=== PATIENT | female | born 1970 | race Caucasian/White ===

== ENCOUNTER 2021-06-25 19:09 | Emergency (ER) | payer OTHER ==
[2021-06-25] MEDS ORDERED: Sodium Chloride 0.9% 10 ML Syringe FLUSH PRN (19:40)
--- NOTE | 2021-06-25 20:12 | EDM.PDOC ---
ED HPI GENERAL MEDICAL PROBLEM - General Chief Complaint: Chest Pain Stated Complaint: CHEST PAIN Time Seen by Provider: 06/25/21 19:30 Source of Information: Reports: Patient, Family, RN Notes Reviewed - History of Present Illness INITIAL COMMENTS - FREE TEXT/NARRATIVE: Patient is a 51-year-old female presenting to the emergency department with complaints of intermittent chest pressure and palpitations. Reports symptoms began approximately 3 hours prior to arrival in ER. States that the episodes of pressure last approximately 10 minutes and then resolve momentarily but have been recurring. States that she feels like her heart races and then slows down. She has had palpitations in the past but states that she does not normally have pressure associated with them. She admits that she does drink quite a bit of caffeine each day. Denies any significant shortness of breath, however states that at times she has had to take a deep breath because it felt like she was not getting enough air. Denies any dizziness or diaphoresis. Pain does not radiate into her neck or arms. Patient is on her way home to [place]. They have been hiking off and on for the last few days and she has been exerting herself significantly more than normal, however they have only been traveling today. She denies any history of blood clots or MO. She does have a history of hypertension for which she takes lisinopril. 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 Denies: Blood Pressure Problem, Lightheadedness, Syncope Endocrine: Reports: No Symptoms GI/Abdominal: Reports: No Symptoms : Reports: No Symptoms Musculoskeletal: Reports: No Symptoms Skin: Reports: No Symptoms Neurological: Reports: No Symptoms Psychiatric: Reports: No Symptoms Hematologic/Lymphatic: Reports: No Symptoms Immunologic: Reports: No Symptoms ED EXAM, GENERAL - Physical Exam Exam: See Below General Appearance: Alert, WD/WN, No Apparent Distress Respiratory/Chest: No Respiratory Distress, Lungs Clear, Normal Breath Sounds, No Accessory Muscle Use, Other (midsternal chest wall tenderness) Cardiovascular: Normal Peripheral Pulses, Regular Rate, Rhythm, No Edema, No Gallop, No JVD, No Murmur, No Rub GI/Abdominal: Normal Bowel Sounds, Soft, Non-Tender, No Organomegaly, No Distention, No Abnormal Bruit, No Mass Extremities: Normal Inspection, Normal Range of Motion, Non-Tender, Normal Capillary Refill, No Pedal Edema Neurological: Alert, Oriented, CN II-XII Intact, Normal Cognition, Normal Gait, Normal Reflexes, No Motor/Sensory Deficits Psychiatric: Normal Affect, Normal Mood Skin Exam: Warm, Dry, Intact, Normal Color, No Rash #1 Interpretation EKG Date: 06/25/21 Time: 19:18 Rhythm: NSR Rate (Beats/Min): 76 [place]: Normal P-Wave: Present QRS: Normal ST-T: Normal QT: Normal Course - Vital Signs Last Recorded V/S: Last Vital Signs Temp 98.4 F 06/25/21 19:33 Pulse 80 06/25/21 19:33 Resp 14 06/25/21 19:33 BP 144/71 H 06/25/21 19:33 Pulse Ox 98 06/25/21 19:33 - Orders/Labs/Meds Labs: Laboratory Tests 06/25/21 06/25/21 06/25/21 Range/Units 19:40 19:40 19:40 WBC 7.10 (3.98-10.04) K/mm3 RBC 4.70 (3.98-5.22) M/mm3 Hgb 14.5 (11.2-15.7) gm/dl Hct 42.5 (34.1-44.9) % MCV 90.4 (79.4-94.8) fl MCH 30.9 (25.6-32.2) pg MCHC 34.1 (32.2-35.5) g/dl RDW Std Deviation 43.0 (36.4-46.3) fL Plt Count 278 (182-369) K/mm3 MPV 10.2 (9.4-12.3) fl Neut % (Auto) 80.6 H (34.0-71.1) % Lymph % (Auto) 12.8 L (19.3-51.7) % [place] % (Auto) 5.8 (4.7-12.5) % Eos % (Auto) 0.3 L (0.7-5.8) Baso % (Auto) 0.4 (0.1-1.2) % Neut # (Auto) 5.72 (1.56-6.13) K/mm3 Lymph # (Auto) 0.91 L (1.18-3.74) K/mm3 [place] # (Auto) 0.41 H (0.24-0.36) K/mm3 Eos # (Auto) 0.02 L (0.04-0.36) K/mm3 Baso # (Auto) 0.03 (0.01-0.08) K/mm3 PT 10.8 (9.7-12.0) SECONDS INR 1.01 APTT 29.8 (21.7-31.4) SECONDS D-Dimer, Quantitative 0.34 (0.19-0.50) mg/L Sodium 142 (136-145) mEq/L Potassium 3.9 (3.5-5.1) mEq/L Chloride 106 (98-107) mEq/L Carbon Dioxide 26 (21-32) mEq/L Anion Gap 13.9 (5-15) BUN 18 (7-18) mg/dL Creatinine 1.0 (0.55-1.02) mg/dL Est Cr Clr Drug Dosing 57.47 mL/min Estimated GFR (MDRD) 58 (>60) mL/min BUN/Creatinine Ratio 18.0 (14-18) Glucose 109 H (70-99) mg/dL Calcium 9.3 (8.5-10.1) mg/dL Magnesium (1.8-2.4) mg/dL Total Bilirubin 0.2 (0.2-1.0) mg/dL AST 36 (15-37) U/L ALT 46 (14-59) U/L Alkaline Phosphatase 94 (46-116) U/L Troponin I < 0.017 (0.00-0.056) ng/mL NT-Pro-B Natriuret Pep (0-125) pg/mL Total Protein 7.5 (6.4-8.2) g/dl Albumin 4.0 (3.4-5.0) g/dl Globulin 3.5 gm/dL Albumin/Globulin Ratio 1.1 (1-2) Urine Color (Yellow) Urine Appearance (Clear) Urine pH (5.0-8.0) Ur Specific [place] (1.005-1.030) Urine Protein (Negative) Urine Glucose (UA) (Negative) Urine Ketones (Negative) Urine Occult Blood (Negative) Urine Nitrite (Negative) Urine Bilirubin (Negative) Urine Urobilinogen (0.2-1.0) Ur Leukocyte Esterase (Negative) Urine RBC (0-5) /hpf Urine WBC (0-5) /hpf Ur Squamous Epith Cells (0-5) /hpf Urine Bacteria (FEW) /hpf Urine Mucus (FEW) /hpf 06/25/21 06/25/21 06/25/21 Range/Units 19:40 19:40 20:52 WBC (3.98-10.04) K/mm3 RBC (3.98-5.22) M/mm3 Hgb (11.2-15.7) gm/dl Hct (34.1-44.9) % MCV (79.4-94.8) fl MCH (25.6-32.2) pg MCHC (32.2-35.5) g/dl RDW Std Deviation (36.4-46.3) fL Plt Count (182-369) K/mm3 MPV (9.4-12.3) fl Neut % (Auto) (34.0-71.1) % Lymph % (Auto) (19.3-51.7) % [place] % (Auto) (4.7-12.5) % Eos % (Auto) (0.7-5.8) Baso % (Auto) (0.1-1.2) % Neut # (Auto) (1.56-6.13) K/mm3 Lymph # (Auto) (1.18-3.74) K/mm3 [place] # (Auto) (0.24-0.36) K/mm3 Eos # (Auto) (0.04-0.36) K/mm3 Baso # (Auto) (0.01-0.08) K/mm3 PT (9.7-12.0) SECONDS INR APTT (21.7-31.4) SECONDS D-Dimer, Quantitative (0.19-0.50) mg/L Sodium (136-145) mEq/L Potassium (3.5-5.1) mEq/L Chloride (98-107) mEq/L Carbon Dioxide (21-32) mEq/L Anion Gap (5-15) BUN (7-18) mg/dL Creatinine (0.55-1.02) mg/dL Est Cr Clr Drug Dosing mL/min Estimated GFR (MDRD) (>60) mL/min BUN/Creatinine Ratio (14-18) Glucose (70-99) mg/dL Calcium (8.5-10.1) mg/dL Magnesium 2.0 (1.8-2.4) mg/dL Total Bilirubin (0.2-1.0) mg/dL AST (15-37) U/L ALT (14-59) U/L Alkaline Phosphatase (46-116) U/L Troponin I (0.00-0.056) ng/mL NT-Pro-B Natriuret Pep 19 (0-125) pg/mL Total Protein (6.4-8.2) g/dl Albumin (3.4-5.0) g/dl Globulin gm/dL Albumin/Globulin Ratio (1-2) Urine Color Light yellow (Yellow) Urine Appearance Slt cloudy H (Clear) Urine pH 6.5 (5.0-8.0) Ur Specific [place] 1.010 (1.005-1.030) Urine Protein Negative (Negative) Urine Glucose (UA) Negative (Negative) Urine Ketones Negative (Negative) Urine Occult Blood Trace-lysed H (Negative) Urine Nitrite Negative (Negative) Urine Bilirubin Negative (Negative) Urine Urobilinogen 0.2 (0.2-1.0) Ur Leukocyte Esterase 2+ H (Negative) Urine RBC 5-10 H (0-5) /hpf Urine WBC 20-30 H (0-5) /hpf Ur Squamous Epith Cells 5-10 H (0-5) /hpf Urine Bacteria Few (FEW) /hpf Urine Mucus Not seen (FEW) /hpf Meds: Medications Discontinued Medications Generic Name Dose Route Start Last Admin Trade Name Fiona PRN Reason Stop Dose Admin Lorazepam 1 mg 06/25/21 20:34 06/25/21 20:51 Lorazepam 1 Mg Tab PO 06/25/21 20:35 1 mg ONETIME ONE Administration Sodium Chloride 10 ml 06/25/21 19:40 06/25/21 20:21 Sodium Chloride 0.9% 10 Ml Syringe FLUSH 10 ml ASDIRECTED PRN Administration Keep Vein Open - Re-Assessments/Exams Free Text/Narrative Re-Assessment/Exam: Patient is a 51-year-old female presenting to the emergency department with complaints of intermittent episodes of chest pressure and palpitations. This has been occurring intermittently for the last 3 hours. She reports history of palpitations but denies having chest pressure associated this. She has been hiking for the last few days and exerting herself significantly more than usual. She feels that she has been taking in enough fluids however. She does report drinking a fair amount of caffeine daily including coffee in the morning as well as a caffeinated coffee drink shortly prior to symptoms starting. Denies significant shortness of breath but states that she sometimes has to take a deep breath because she feels like she did not get enough air. Exam is unremarkable with the exception of some midsternal chest wall tenderness. I have ordered blood work, EKG, chest x-ray. We will give Ativan 1 mg p.o as I suspect her symptoms are likely related to caffeine consumption and chest wall muscle spasms. 06/25/21 21:17 Hematology is unremarkable. D-dimer is normal at 0.34. Troponin is undetectably low. Patient does have urinary tract infection however. Symptoms have improved slightly after the Ativan, however it is only been approximately half hour since it was given. Still has occasional "pressure "in her chest but it has slightly improved. Denies any recurrence of palpitations. They would like to be discharged at this time as they have another 90 miles to travel before the end of the evening. They are staying in [place]. Discussed with patient that if her symptoms should worsen in any way or she develops any other concerning symptoms, she should seek evaluation with medical facilities in [place]. She will be provided Ativan and Macrobid through our [facility] machine. Recommend follow-up with her primary care provider when she gets home. Discharge instructions as documented. Departure - Departure Time of Disposition: 21:18 Disposition: Home, Self-Care 01 Condition: Good Clinical Impression: Acute chest wall pain, Palpitations Urinary tract infection Qualifiers: Urinary tract infection type: acute cystitis Hematuria presence: without hematuria Qualified Code(s): N30.00 - Acute cystitis without hematuria Instructions: Chest Wall Pain, [id number], Palpitations Referrals: PCP,Not In Area [Primary Care Provider] - Forms: ED Department Discharge Additional Instructions: You were seen in the emergency department today for intermittent chest wall pressure as well as heart palpitations. Work-up included blood work, EKG of your heart, chest x-ray, and urinalysis. You were found to have urinary tract infection, however the remainder of your work-up was normal. You are not having a heart attack. You do not have a blood clot in your lungs. As you discussed, the pressure you are experiencing is likely chest wall muscle spasms which can be caused by a number of contributing factors. While in the ER, you did receive Ativan to help relax the muscles and help you to relax overall. This will likely make you little sleepy but should improve your symptoms. Prescription for Ativan and Macrobid has been provided to you through our [facility] machine. Take these as prescribed. Should symptoms worsen in any way or you develop any new symptoms of concern, recommend follow-up with the nearest medical facility. Upon returning home, I would recommend follow-up with your primary care provider to discuss today's occurrences and discussed possibility of Holter monitor should palpitations continue. Sepsis Event Note (ED) - Evaluation Sepsis Screening Result: No Definite Risk
[2021-06-25] MEDS ORDERED: LORazepam 1 MG Tab PO ONE (20:34)
--- NOTE | 2021-06-26 11:09 | CR ---
Chest: 2 views of the chest were obtained. Comparison: No prior chest imaging is available. Heart size and mediastinum are normal. Lungs are clear with no acute parenchymal change. Bony structures show nothing acute. Impression: 1. Nothing acute is seen on 2-view chest x-ray. Diagnostic code #1
== END 2021-06-25 21:36 | disposition home or self-care (01) ==
LOC: JD.ED 19:09
DX: R07.89 Other chest pain (principal); R00.2 Palpitations; N30.00 Acute cystitis without hematuria; I10 Essential (primary) hypertension; Z79.899 Other long term (current) drug therapy
CPT/HCPCS: 36415; 71046; 80053; 81001; 83735; 83880; 84484; 85025; 85379; 85610; 85730; 87086; 93005; 99285; A9270; 93010; 99284